=== PATIENT | female | born 1955 | race Caucasian/White ===

== ENCOUNTER 2016-05-30 14:29 | Emergency (ER) | payer OTHER ==
[~2016-05-30] VITALS: Ht 167.6 cm; Wt 98.0 kg
[2016-05-30 14:48] VITALS: TEMP 36.7; Ht 167.6 cm; Wt 98.0 kg
[2016-05-30] MEDS ORDERED: XYLOCAINE 1%/SOD BICARB 20 ML VIAL INFIL ONE (15:00)
[2016-05-30] MEDS ORDERED: DIPHTHERIA/TETANUS/PERTUSSIS 0.5 ML SYR/VIAL IM. ONE (15:00)
--- NOTE | 2016-05-30 15:14 | EMERGENCY ROOM VISIT NOTE ---
ED Visit Note First contact with patient: 14:53 CHIEF COMPLAINT: Finger laceration HISTORY OF PRESENT ILLNESS: This 61-year-old female patient presents to the emergency department ambulatory after cutting the left thumb approximately one hour prior to arrival with a box person she states that she was attempting to change the blade when her finger got caught in the blade. The bleeding has stopped. Denies weakness or numbness of the finger. The patient has full range of motion of the fingers. The patient rates the pain as sharp and 6/10. The patient denies any other injuries. The patient's tetanus shot is not up to date. REVIEW OF SYSTEMS: A 6 system review of systems was completed with positives and pertinent negatives listed in the HPI. ALLERGIES: Tramadol MEDICATIONS: Meloxicam PMH: Arthritis SOCIAL HISTORY: The patient lives locally with family. Nonsmoker. PHYSICAL EXAM: Vital Signs: Reviewed Nurse's notes, vital signs stable. GENERAL : This is a 61-year-old female, in no acute distress, well developed, well nourished. SKIN: There is a 2.5 cm long laceration on the distal aspect of the left thumb. The edges gape apart with traction. There is no foreign material in the wound and it looks clean. There is no active bleeding. No deep structures such as tendons, bones, or significant blood vessels are seen in the base of the wound. Extension and flexion of the finger is full and strong. Full range of motion of the wrist and other fingers. Capillary refill less than 2 seconds. Normal sensation to light and sharp touch. EMERGENCY DEPARTMENT COURSE: I examined the patient. Verbal consent was obtained to perform the procedure. Using sterile technique the wound was cleansed with Betadine. 5 ml of 1% buffered lidocaine was used to perform a digital block to anesthetize the patient. The area was sterilely draped. Once the patient was anesthetized, the wound was copiously irrigated under pressure with sterile saline. The wound was explored and there were no deep structures injured. The laceration was repaired using 6 simple interrupted 5-0 nylon sutures. The patient tolerated the procedure well. Hemostasis was achieved. The area was cleaned with sterile saline and dressed with bacitracin ointment and bandage. The patient was given a tetanus booster. The patient was discharged home in good condition. DIAGNOSIS: Finger laceration Current/Historical Medications Scheduled Meloxicam (Meloxicam), 15 MG PO QAM Allergies Coded Allergies: Tramadol (Unverified Allergy, Unknown, ITCHY,PASSED OUT, 05/30/16) Vital Signs Date Time Temp Pulse Resp B/P Pulse Ox O2 Delivery O2 Flow Rate FiO2 05/30/16 16:03 69 16 122/78 99 05/30/16 14:48 36.7 80 18 141/97 95 Room Air Medications Administered Medications (Trade) Dose Ordered Sig/Ezra Route Start Time Stop Time Status Last Admin Dose Admin Diphtheria/ Pertussis/Tetanus Vacc (Adacel Inj) 0.5 ml ONCE ONCE IM. 05/30/16 15:00 05/30/16 15:01 DC 05/30/16 15:31 0.5 ML Lidocaine HCl (Buffered Lidocaine 1% Inj) 20 ml ONE ONCE INFIL 05/30/16 15:00 05/30/16 15:01 DC 05/30/16 15:00 20 ML Departure Information Impression Primary Impression: Finger laceration Dispostion Home / Self-Care Condition GOOD Referrals No Doctor, Assigned (PCP) Patient Instructions Formerly [facility], [facility] Additional Instructions You have received 6 sutures on your finger. These sutures are NOT dissolvable and WILL need to be removed by a health care provider in 10-12 days. You can return to the Emergency Department or contact your Primary Care Provider to have the sutures removed. Proper wound care is essential for adequate wound healing and infection prevention. You can shower and clean the wound with soap and water. Do not scour over the wound, pat dry with a towel. Do not submerse the wound (i.e. bathe or dish wash) until the sutures have been removed. You can use an antibiotic ointment with a dressing over the wound for the next 3-4 days. After this time you may leave the wound dry and open to the air. If crust develops over the wound you can use a Q-tip to apply a 1:1 peroxide:water solution to clean the wound. Look for signs of infection of the wound including: increased pain, swelling, foul discharge, streaking, or increased temperature. If any of these are noticed you should return to the Emergency Department for further assessment and treatment. As with any laceration you may have received nerve damage to the surrounding tissues. This damage may or may not be permanent. You should keep the area covered with sunscreen for the first 6 months to 1 year when at risk for exposure to help minimize scarring. You can also use scar reducing creams or Vitamin E oil to help minimize scarring. For pain control, you can use the following [id number] medicines (if >12 yo): - Regular strength (325mg/tab) Tylenol (acetaminophen) 2 tabs every 4-6 hours as needed. Do not exceed 12 tablets in a 24 hour period. Avoid taking more than 4 grams (4000 mg) of Tylenol per day. This includes any other sources of acetaminophen you may take on a regular basis. - Regular strength (200 mg/tab) Advil (ibuprofen) 1-2 tabs every 4-6 hours as needed. Do not exceed a dose of 3200 mg per day. Return to the emergency department if your symptoms worsen despite treatment course outlined above. Problem Qualifiers Primary Impression: Finger laceration Encounter type: initial encounter Qualified Codes: S61.219A - Laceration without foreign body of unspecified finger without damage to nail, initial encounter
[2016-05-30] MEDS ORDERED: MELO15TA4 PO (15:18)
[2016-05-30 16:03] VITALS: BP 122/78; PULSE 69; O2SAT 99
== END 2016-05-30 16:10 | disposition home or self-care (01) ==
LOC: C.EDB 14:31 → C.EDD 16:10
DX: S61.012A Laceration without foreign body of left thumb without damage to nail, initial encounter (principal); W26.8XXA Contact with other sharp object(s), not elsewhere classified, initial encounter; Y92.89 Other specified places as the place of occurrence of the external cause